=== PATIENT | female | born 1955 | race Hispanic/Latino ===

== ENCOUNTER 2018-11-01 08:34 | Day surgery (SDC) | payer BC ==
[~2018-11-01 08:34] MED LIST: ANCEF/STERILE WATER 2 GM/20 ML 2 GM/20 ML SYRINGE IV NR; NACL 0.9% 1000 ML 1,000 ML IV SCH
[2018-11-01 09:28] LABS: Basophils % (Auto) 0.5 % (0.0-1.8); Eosinophils # (Auto) 0.1 K/mm3 (0.0-0.4); Eosinophils % (Auto) 1.5 % (0.0-4.3); Hematocrit 42.3 % (30.3-42.9); Hemoglobin 14.1 gm/dl (10.1-14.3); Lymphocytes # (Auto) 3.3 K/mm3 (1.2-5.4); Lymphocytes % (Auto) 40.9 % (13.4-35.0); Mean Corpuscular HGB Conc 33 % (30-34); Mean Corpuscular Volume 89 fl (79-97); Monocytes # (Auto) 0.6 K/mm3 (0.0-0.8); Monocytes % (Auto) 7.2 % (0.0-7.3); Platelet Count 229 K/mm3 (140-440); Red Blood Count 4.76 M/mm3 (3.65-5.03); Red Cell Distribution Width 13.6 % (13.2-15.2)
[2018-11-01 09:37] LABS: INR 1.02 (0.87-1.13)
[2018-11-01 09:38] LABS: Partial Thromboplastin Time 28.8 Sec. (24.2-36.6)
[2018-11-01 09:46] LABS: BUN/Creatinine Ratio 19; Blood Urea Nitrogen 13 mg/dL (7-17); Calcium 9.6 mg/dL (8.4-10.2); Hemolysis Index 29
[2018-11-01] MEDS ORDERED: SUBLIMAZE ONE (10:25)
[2018-11-01] MEDS ORDERED: VERSED ONE (10:25)
[2018-11-01] MEDS ORDERED: TORADOL ONE (10:26)
[2018-11-01] MEDS ORDERED: HEPARIN/NS 5000 UNIT/500ML(CATH LAB) 1,000 ML IR ONE (10:26)
--- NOTE | 2018-11-01 10:32 | Short Stay Summary ---
Short Stay Documentation Date of service: 11/01/18 - History Principal diagnosis: Venous compression Past Medical History: other (venous hypertension) Social history: no significant social history, lives with family - Allergies and Medications Current Medications: Allergies cephalexin [From Keflex] Allergy (Verified 11/01/18 09:43) JOINTS ACHING naproxen [From Naprosyn] Allergy (Verified 11/01/18 09:43) JOINTS ACHING Active Medications Cefazolin Sodium (Ancef/Sterile Water 2 Gm/20 Ml) 2 gm in 20 mls @ 80 mls/hr IV PREOP NR; Protocol Sodium Chloride (Nacl 0.9% 1000 Ml) 1,000 mls @ 42 mls/hr IV DIRECT CELINA Last Admin: 11/01/18 09:46 Dose: 42 mls/hr Documented by: - Physical exam General appearance: no acute distress Integumentary: no rash, no growths HEENT: Atraumatic Lungs: Normal air movement Breasts: deferred Heart: Regular rate Gastrointestinal: normal Female Genitourinary: deferred Extremities: abnormal (BLE edema and bulging varicose veins) Neurological: Normal gait, Normal speech - Brief post op/procedure progress note Date of procedure: 11/01/18 Pre-op diagnosis: venous compression Post-op diagnosis: same Procedure: BLE venogram, IVUS Anesthesia: local Surgeon: LATASHA MCRAE Estimated blood loss: minimal Pathology: none Condition: stable - Disposition Condition at discharge: Good Disposition: DC-01 TO HOME OR SELFCARE Short Stay Discharge Plan Activity: advance as tolerated Weight Bearing Status: Weight Bear as Tolerated Diet: regular Wound: keep clean and dry, per your surgeon's advice Follow up with: PRIMARY CARE, [Primary Care Provider] - 7 Days
[2018-11-01] MEDS: XYLOCAINE 2% INFILTRATI ONE ×2 (10:55→10:57)
--- NOTE | 2018-11-01 11:33 | Operative Report ---
Operative Report Operative Report: Exam: Exam: Exam: Bilateral lower extremity venogram, intravascular ultrasound Clinical indication: Venous compression causing venous hypertension Date: 11/01/2018 Procedure: Following an explanation of the risks, benefits and alternatives; written informed consent was obtained. The patient was brought to the angiographic suite and placed in supine position on the examination table. Initial ultrasound evaluation of her legs demonstrated patent femoral veins proximally. The patient's groin and proximal legs were prepped and draped in the usual sterile fashion. 1% lidocaine was used for anesthesia. Under ultrasound guidance, the right proximal femoral vein was cannulated with a 7 cm 18-gauge needle. A 0.03 Pop guidewire was advanced centrally. The needle was removed and a 5 English sheath placed. Access to the left proximal femoral vein was obtained in a similar fashion and an additional 5 English sheath placed. Contrast was injected through both she simultaneously. This demonstrates significant compression of the left common iliac vein with lesser compression of the right common iliac vein. The decision was made to evaluate further with intravascular ultrasound. The sheaths were upsized over the guidewires for 10 English sheaths. Intravascular ultrasound was performed through the right sheath from the IVC to this sheath insertion site. Intravascular ultrasound was performed through the left sheath from the IVC to the sheath insertion site. Imaged vessels including the IVC, right common iliac vein, right external iliac vein, right common femoral vein, left common iliac vein, left external iliac vein and left common femoral vein. This demonstrates significant compression of 60-70% of the left common iliac vein from the overlying artery. The artery appears to be grossly enlarged. There is a minimal amount of compression of the right common iliac vein of 30-40%. Again noted is an enlarged artery overlying the vein. At this point, the guidewires and sheaths were removed and hemostasis achieved using manual compression. Sterile compression dressings were applied. The patient tolerated the procedure well. There were no immediate post procedure complications. Conscious sedation was performed under the guidance of radiologic nursing. Continuous cardiopulmonary monitoring was utilized. Impression: Bilateral lower extremity venogram and intravascular ultrasound of the IVC, bilateral common iliac veins, bilateral external iliac veins in bilateral common femoral veins demonstrated 60-70% stenosis involving the left common iliac vein and 30-40% stenosis involving the right common iliac vein. The overlying arteries appear to be grossly enlarged and will need further evaluation with a CT of the abdomen and pelvis
[2018-11-01 13:39] VITALS: BP 115/56
== END 2018-11-01 13:35 | disposition home or self-care (01) ==
LOC: CATHLABREC 08:34
PROVIDERS: ATTEND Radiology Diagnostic Radiology
DX: I87.1 Compression of vein (principal); I87.303 Chronic venous hypertension (idiopathic) without complications of bilateral lower extremity; Z79.899 Other long term (current) drug therapy; Z88.6 Allergy status to analgesic agent; Z88.1 Allergy status to other antibiotic agents; Z98.890 Other specified postprocedural states; Z80.3 Family history of malignant neoplasm of breast; Z82.49 Family history of ischemic heart disease and other diseases of the circulatory system
CPT/HCPCS: 36415; 37252; 37253; 75822; 76937; 80048; 85025; 85610; 85730; 99156; 99157; C1753; C1894; J1644; J2250; J3010; J7030; J1885; Q9967